=== PATIENT | female | born 1965 | race Caucasian/White ===

== ENCOUNTER → 2020-11-02 17:49 | Outpatient (CLI) | payer MEDICARE, SELFPAY ==
--- NOTE | 2020-11-02 | CYSPIN_PTH ---
PATIENT: HAYDEN MAURO LOC: [facility] U#:[id number] AGE/SX: 59/F ROOM: RE11/02/[address]: Dr. Rossi Ortiz MD : 1965 BED: DIS: SPEC #: [id number] RECD: 11/02/20 15:00 STATUS: BIANCA BOYDRona #: [id number] KADE: 11/02/20 00:[address]: Rossi Ortiz DEPT: CYTOLOGY RECD BY: Kaity Byrne Tissues: Urine Procedures: Pap Stain (control) Special Stain Group II Cytospin Fluid HEADER OPERATION: Not noted PRE-OP DIAGNOSIS: Dysuria TISSUE SUBMITTED: Urine for cytology DIAGNOSIS CYTOLOGY Urine for cytology (cytospin): Negative for malignant cells. Acute inflammation. AM:mati 11/03/2020 CYTOLOGY STUDY Slides are reviewed. CYTOLOGY GROSS Received is 40 ml of hazy, yellow fluid labeled with the patient's name and and designated per the requisition as urine. Submitted for cytology preparation. / mati 11/03/2020 TC:2 CPT: 11251
[2020-11-02 17:52] LABS: Cytology, Body Fluid / CSF SEE PATHOLOGY REPORT
== END ==
PROVIDERS: Referring Provider Urology; Visit Provider Urology
DX: R30.0 Dysuria (principal)
CPT/HCPCS: 88108; 88313

== ENCOUNTER → 2020-11-16 13:37 | Outpatient (CLI) | payer MEDICARE, SELFPAY ==
[2020-11-16 13:56] LABS: CREATININE FINGERSTICK 0.9 mg/dL (0.55-1.02); EGFR FINGERSTICK > 60.0000 mL/min (>60)
--- NOTE | 2020-11-16 14:00 | CT_ITS ---
STUDY: CT ABDOMEN AND PELVIS WITH AND WITHOUT CONTRAST REASON FOR EXAM: Female, 55 years old. Gross hematuria. History of left breast cancer. RADIATION DOSAGE (If Supplied By Facility): CTDIvol = ( 27.61 ) mGy, DLP = ( 4828.18 ) mGycm TECHNIQUE: Transaxial images were obtained from the dome of the diaphragm to the symphysis pubis without oral contrast. IV 100mL Isovue-300 was administered. Sagittal and coronal images were reconstructed. Individualized dose optimization techniques were used for this CT. COMPARISON: None. FINDINGS: The visualized lung bases are unremarkable. The visualized portions of the heart are within normal limits. There is a subcentimeter cyst in segment 3 of an otherwise normal liver. Normal gallbladder and extrahepatic biliary system. There is a benign calcified granuloma of the spleen. Normal pancreas. Normal bilateral adrenal glands. Normal right kidney. Normal left kidney. Normal ureters. Normal visualized stomach. Normal small intestine. Normal colon. There is non-visualization of the appendix. There is diffuse atherosclerotic calcification of the abdominal aorta, without a demonstrated aneurysm. Normal inferior vena cava. Normal retroperitoneum. Normal urinary bladder. Unremarkable vaginal cuff. No pelvic lymphadenopathy. No free air or free fluid is seen within the peritoneal cavity. Normal abdominal wall. There are mild degenerative changes of the visualized lumbar spine. Small sclerotic focus left ilium, just lateral to the iliosacral joint. The osseous structures are otherwise unremarkable CT/CT Abd/Pelvis W/WO Contrast IMPRESSION: 1. No visualized renal, ureteral or urinary bladder abnormality. 2. Left hepatic cyst. 3. Calcified granuloma in the spleen. 4. Status post hysterectomy. 5. Degenerative changes of the lumbar spine.. There is single sclerotic focus in the left ilium. Electronically Signed: Faisal Teresa DO at 20:49 EDT Tel [phone], Service support ,
== END ==
PROVIDERS: PCP Nurse Practitioner Family; Referring Provider Urology; Visit Provider Urology
DX: R31.0 Gross hematuria (principal)
CPT/HCPCS: 74178; Q9967; A4216